=== PATIENT | male | born 1990 | race Two or more races ===

== ENCOUNTER 2021-12-24 20:03 | Emergency (ER) | payer OTHER ==
[~2021-12-24] VITALS: Ht 180.3 cm; Wt 101.2 kg
[2021-12-24] MEDS ORDERED: DICLOFENAC POTA50 MG PO (23:34)
== END 2021-12-25 00:33 | disposition home or self-care (01) ==
LOC: ER 20:03
DX: M54.9 Dorsalgia, unspecified (principal); W10.9XXA Fall (on) (from) unspecified stairs and steps, initial encounter; Y93.9 Activity, unspecified; Y92.019 Unspecified place in single-family (private) house as the place of occurrence of the external cause

== ENCOUNTER 2022-01-26 11:41 | Outpatient (CLI) | payer OTHER ==
[~2022-01-26 11:41] MED LIST: DICLOFENAC POTA50 MG PO
== END 2022-01-26 11:43 | disposition home or self-care (01) ==
LOC: LAB 11:41
PROVIDERS: ATTEND Obstetrics & Gynecology
DX: Z20.818 Contact with and (suspected) exposure to other bacterial communicable diseases (principal); Z20.828 Contact with and (suspected) exposure to other viral communicable diseases

== ENCOUNTER 2023-12-22 10:20 | Emergency (ER) | payer OTHER ==
[~2023-12-22] VITALS: Ht 180.3 cm; Wt 95.3 kg
[2023-12-22] MEDS ORDERED: AMOX1TAB5 PO (11:50)
[2023-12-22] MEDS ORDERED: ALBUTEROL1.25 MG/3 IH (11:50)
== END 2023-12-22 11:54 | disposition home or self-care (01) ==
LOC: ER 10:21
DX: R53.81 Other malaise (principal); J32.9 Chronic sinusitis, unspecified; J98.01 Acute bronchospasm